=== PATIENT | female | born 1950 | race Hispanic/Latino ===

== ENCOUNTER → 2025-01-01 | Outpatient (CLI) | payer OTHER ==
--- NOTE | 2025-01-08 15:32 | HMCIMG ---
CLINICAL INDICATION: Asymptomatic menopausal state COMPARISON: None available TECHNIQUE: Bone densitometry is performed of the lumbar spine and left hip. FINDINGS: Total BMD of lumbar spine is 1.008 g/cm2 with a T-score of -0.4 and Z-score is 1.9. Total BMD of left hip is 0.879 g/cm2 with a T-score of -0.6 and Z-score is 1.0. FRAX SCORE: The 10 year fracture risk for a major osteoporotic fracture and hip fracture 9.4% IMPRESSION: 1. Osteopenia of the left hip 2. Normal lumbar spine 3. I would recommend follow-up in 13 months. World Health Organization criteria for BMD interpretation classify patients as Normal (T-score at or above -1.0), Osteopenic (T-score between -1.0 and -2.5), or Osteoporotic (T-score at or below -2.5). FRAX SCORE: A. All treatment decisions require clinical judgment and consideration of individual patient factors, including patient preferences, comorbidities, previous drug use, risk factors not captured in the FRAX model (e.g., frailty, falls, vitamin D deficiency, increased bone turnover, interval significant decline in bone density) and possible [id number]-estimation of fracture risk by FRAX. B. In addition, the NOF Guide recommends that FDA-approved medical therapies be considered in postmenopausal women and men age greater than or equal to 50 years with a: i. Hip or vertebral (clinical or morphometric) fracture. ii. T-score of less than or equal to -2.5 at the spine or hip. iii. Ten-year fracture probability by FRAX of greater than or equal to 3% for hip fracture of greater than or equal to 20% for major osteoporotic fracture.
== END | disposition home or self-care (01) ==
LOC: RAH 09:39
PROVIDERS: ATTEND Student in an Organized Health Care Education/Training Program
DX: M85.88 Other specified disorders of bone density and structure, other site (principal); Z78.0 Asymptomatic menopausal state
CPT/HCPCS: 77080